=== PATIENT | male | born 1955 | race Caucasian/White ===

== ENCOUNTER → 2017-04-12 | Outpatient (CLI) | payer BC ==
[~2017-04-12] MED LIST: EMTR1TAB11 PO; GADOBUTROL 7.5 MMOL/7.5 ML VIAL IV ONE; RITO100T PO
[2017-04-12 15:15] LABS: CREATININE 0.8 mg/dL (0.7-1.3); GFR 98.3
--- NOTE | 2017-04-12 16:06 | RAD ---
MR LUMBAR SPINE HISTORY: NO PRIORS...PT C/O LBP BUT DENIES RADICULOPATHY AT THIS TIME Technique: Sagittal T2, sagittal STIR, and sagittal T1-weighted images were obtained. Additional axial T1 and T2 weighted imaging was also performed. FINDINGS: There is straightening of the lumbar lordosis. No compression fracture or deformity. There is mild degenerative disc height loss at all levels. The conus terminates normally at the level of L2. Visualized intra-abdominal contents demonstrates an enlarged gallbladder. L5-S1 there is disc height loss and a small bulge but no spinal stenosis. At L4-L5 there is disc height loss but no spinal stenosis. At L3-L4 there is disc height loss and moderate facet hypertrophy. There is also ligamentum flavum thickening. There is encroachment of the right facet into the foramen causing mild right foraminal stenosis. The emergency facets causes mild to moderate central spinal stenosis as well. At L2-L3 there is no spinal stenosis. L1-L2 there is no spinal stenosis. IMPRESSION: Multilevel degenerative disc and facet disease with no high-grade Central spinal or neural foraminal stenosis. This is most pronounced at L3-L4 with there is mild to moderate central spinal stenosis and mild right foraminal stenosis. Electronically signed by: Augie Kenny MD (04/12/2017 4:03 PM)
--- NOTE | 2017-04-12 16:17 | RAD ---
MR BRAIN WITH CONTRAST HISTORY: NO PRIORS..GAVE 6ML GADAVIST..PT C/O DIZZYNESS WITH SYNCOPE EPISODES TECHNIQUE: Axial diffusion-weighted imaging was obtained. Additional axial FLAIR, and axial T2 weighted images were obtained. Sagittal and axial T1-weighted imaging was obtained prior to the administration of intravenous contrast material. Additional sagittal, axial, and coronal T1-weighted imaging was obtained after the administration of gadolinium based intravenous contrast material. FINDINGS: No abnormal signal within the brain parenchyma. No abnormal enhancement identified. No restricted diffusion to indicate an acute infarct. No evidence of acute intracranial hemorrhage. No extra-axial fluid collections are identified. There is no mass effect or midline shift. Ventricular size is appropriate. Basal cisterns are patent. Visualized flow voids are normal in course, caliber, and signal. Globes and orbits are unremarkable. Paranasal sinuses and mastoid air cells are clear. IMPRESSION: No acute or recent infarct. No abnormal enhancement or mass. No acute intracranial abnormality. Electronically signed by: Augie Kenny MD (04/12/2017 4:14 PM)
== END | disposition home or self-care (01) ==
LOC: MRI 14:32
PROVIDERS: ATTEND Family Medicine
DX: M51.36 Other intervertebral disc degeneration, lumbar region (principal); M48.06 Spinal stenosis, lumbar region; R55 Syncope and collapse
CPT/HCPCS: 36415; 70553; 72148; 82565; 84520; A9585